=== PATIENT | male | born 1950 | race Caucasian/White ===

== ENCOUNTER 2017-07-30 17:38 | Emergency (ER) | payer MEDICARE ==
[~2017-07-30] VITALS: Ht 188 cm; Wt 142.3 kg
[2017-07-30 17:39] VITALS: BP 175/95
[2017-07-30] MEDS ORDERED: TRUL10IN (18:01)
[2017-07-30] MEDS ORDERED: GABA-282 PO (18:01)
[2017-07-30] MEDS ORDERED: TOUJ1.2I (18:01)
[2017-07-30] MEDS ORDERED: HUMA100I3 SC (18:01)
[2017-07-30] MEDS ORDERED: ASPI81TA85 PO (18:01)
[2017-07-30] MEDS ORDERED: CINN500C9 PO (18:01)
[2017-07-30] MEDS ORDERED: ATOR1TAB21 (18:01)
[2017-07-30] MEDS ORDERED: VITA200038 PO (18:01)
[2017-07-30] MEDS ORDERED: FLOM5CAP PO (18:01)
[2017-07-30] MEDS ORDERED: FINA5TAB2 (18:01)
[2017-07-30] MEDS ORDERED: AMLO10TA2 (18:01)
[2017-07-30] MEDS ORDERED: LOSA25TA8 (18:01)
[2017-07-30] MEDS ORDERED: valACYclovir HCL 500 MG TAB PO ONE (21:00)
[2017-07-30] MEDS ORDERED: ACETAMINOPH W/CODEINE #3 TAB UD PO ONE (21:00)
[2017-07-30] MEDS ORDERED: CLINDAMYCIN 150 MG CAP PO ONE (21:00)
[2017-07-30] MEDS ORDERED: CLEO300C2 PO (21:08)
[2017-07-30] MEDS ORDERED: ACET30TAB PO (21:08)
[2017-07-30] MEDS ORDERED: VALA1TAB2 PO (21:13)
== END 2017-07-30 21:32 | disposition home or self-care (01) ==
LOC: M ED 17:38
DX: E10.9 Type 1 diabetes mellitus without complications (principal); B02.9 Zoster without complications; M25.421 Effusion, right elbow; I10 Essential (primary) hypertension; E78.00 Pure hypercholesterolemia, unspecified; Z79.899 Other long term (current) drug therapy; Z79.82 Long term (current) use of aspirin; Z79.4 Long term (current) use of insulin